=== PATIENT | female | born 1975 | race Caucasian/White ===

== ENCOUNTER → 2017-08-20 | Outpatient (CLI) | payer OTHER ==
[~2017-08-20] MED LIST: ADVIN25/60 INH; ALBUAER2 INH; CETITAB27 PO; CHOL1000 PO; [UNRECOGNIZED DRUG - CODE] PO
--- NOTE | 2017-08-20 09:36 | DIAGNOSTIC IMAGING REPORT ---
(CHEST) THORAX WITHOUT CT DOSE: 244.82 mGy.cm HISTORY: Pulmonary nodule MYASTHENIA GRAVIS,PULM NODULE,STERNAL PAIN TECHNIQUE: Multiaxial CT images of the chest were performed without contrast. A dose lowering technique was utilized adhering to the principles of ALARA. COMPARISON: 08/04/2016 FINDINGS: Unchanged evaluation of the chest. Minimal micronodularity at the lung bases stable and nonprogressive. There are no new or interval findings. There are no changes in dimension or configuration of any of the nodule previous described. No significant mediastinal or hilar adenopathy. Moderate pectus deformity of the inferior sternal region. No evidence for a true lytic or blastic process. IMPRESSION: 1. Several stable micronodules in the lung bases are considered benign at this time.. 2. Pectus deformity of the sternum and anterior chest wall 3. No acute bony abnormality The above report was generated using voice recognition software. It may contain grammatical, syntax or spelling errors. Electronically signed by: Igor Daniels M.D. 08/20/2017 9:35 AM Dictated Date/Time: 08/20/2017 9:30 AM
== END | disposition home or self-care (01) ==
LOC: C.CTS 09:15
PROVIDERS: ATTEND Psychiatry & Neurology Neurology
DX: G70.00 Myasthenia gravis without (acute) exacerbation (principal); R07.89 Other chest pain; M95.4 Acquired deformity of chest and rib; R91.8 Other nonspecific abnormal finding of lung field